=== PATIENT | male | born 1975 ===

== ENCOUNTER 2020-11-11 10:08 | Outpatient (REF) | payer OTHER, SELFPAY ==
[2020-11-11 10:19] LABS: COVID-19 Test Positive (Negative)
== END 2020-11-11 10:09 | disposition home or self-care (01) ==
LOC: HO.LAB 10:08
PROVIDERS: Visit Provider Internal Medicine
DX: Z20.822 Contact with and (suspected) exposure to COVID-19 (principal)
CPT/HCPCS: 36415; 87635; C9803

== ENCOUNTER 2020-12-01 10:35 | Emergency (ER) | payer MEDICAID, SELFPAY ==
--- NOTE | ~2020-12-01 | XR_ITS ---
EXAMINATION: RIGHT HAND AND WRIST. CLINICAL INFORMATION: Status post needle 6 injury. COMPARISON: None TECHNIQUE: 3 views. FINDINGS: There is no visible acute fracture, dislocation or subluxation seen. The soft tissues are normal. XR/XR hand wrist RT IMPRESSION: Unremarkable right hand exam.
[2020-12-01 10:55] VITALS: BP 131/92; PULSE 106; RESP 18; TEMP 36.9; O2SAT 96; BMI 31.3
[2020-12-01] MEDS: Diphth,Pertus(ACell),Tet Adult 0.5 ML SYRINGE IM (11:29)
--- NOTE | 2020-12-01 11:36 | ED_ITS ---
HPI - Fall General Chief Complaint: Extremity Injury, Upper Stated Complaint: lac Time Seen by Provider: 12/01/20 11:18 Source: patient Mode of arrival: ambulatory Limitations: no limitations History of Present Illness HPI Narrative: 45-year-old male presenting to the ED with complaints of right hand pain questioning foreign body after he had a mechanical fall where he fell onto a nail. He is unsure if there was a foreign body in there. He reports he is not up-to-date on his tetanus. He denies any symptoms prior to the fall or symptoms after the fall. Denies any other symptoms complaints concerns or injuries at this time. complaint: fall Onset (ago): day(s) (2 days ago) Fall from: standing Fall witnessed: no Place fall occurred: home Loss of consciousness: none Prolonged down time: no Symptoms prior to fall: none Context: tripped/slipped Location of injury - extremities: right: hand Severity: mild Quality: aching Associated symptoms (after fall): denies Related Data Previous Rx's Medication Instructions Recorded cephalexin 500 mg PO BID 10 Days #20 cap 12/01/20 doxycycline hyclate 100 mg PO BID 10 Days #20 tab 12/01/20 naproxen 500 mg PO BID PRN #10 tab 12/01/20 Allergies Allergy/AdvReac Type Severity Reaction Status Date / Time Penicillins [PENICILLINS] Allergy Intermediate ANAPHYLAXIS Unverified 03/06/20 16:08 Review of Systems Review of Systems: Constitutional : No changes in activity, No lethargy, No recent prior head injury, No agitation, No increased fussiness ENT/Mouth : No Ear Pain, No Nasal discharge/drainage Eyes: No Eye Pain, No Swelling, No Redness, No Foreign Body, No Vision Changes Cardiovascular : No Chest Pain, No SOB Respiratory : No Cough Gastrointestinal : No Nausea, No Vomiting, No abdominal Pain Genitourinary : No Dysuria, No Urinary Frequency, No Urinary Incontinence, No Urgency, No Flank Pain Musculoskeletal : + joint pain, No neck stiffness, No back pain/injury Skin : No lacerations Neuro : No unsteady gait, No Paresthesias, No Loss of Consciousness, No altered mental status, No Headache Yes all other systems are reviewed and are negative [facility] Past Medical History Attestation statement: The following information was validated with the patient. Surgical History Hx of elbow surgery Social History Social History Advance Directives: No Advance Directives Information Provided: No Physical Exam Vital Signs: Vital Signs: Last Vital Signs Temp 98.4 F 12/01/20 10:55 Pulse 106 H 12/01/20 10:55 Resp 18 12/01/20 10:55 BP 131/92 H 12/01/20 10:55 Pulse Ox 96 12/01/20 10:55 Body Mass Index 31.3 vital signs have been reviewed as normal and appeared to be correct. Blood pressure normal. Heart rate normal. Respiration rate normal. Temperature normal. Oxygen saturation normal. Appearance: Alert. Oriented X3. No acute distress. Head: Normal external exam. Normocephalic. Atraumatic. No Vital signs noted. No raccoon eyes noted Eyes: PERRLA. EOMI. Conjunctiva and sclera normal. Eyelids normal. ENT: Pharynx normal. Uvula midline. Moist mucous membranes. Neck: Normal inspection. Neck supple. FROM. No adenopathy. No meningeal signs. CVS: Normal heart rate and rhythm. Heart sound normal. Pulses normal throughout. No murmurs/rales/gallops. Respiratory: No respiratory distress. Painless inspiration. Breath sounds normal. No wheezes/rales/rhonchi noted. Chest nontender. No accessory muscle usage noted or decreased air movement noted. Back: Full range of motion noted. No rashes/lesion/induration/fluctuance or signs of infection noted. Skin: Skin warm and dry. Normal skin color. Normal skin turgor. No rashes/lesions/lacerations noted. Extremities: Patient with a puncture wound to palmar aspect of right hand with scab in place with mild surrounding erythema. No streaking/induration/fluctuance or foreign bodies noted at this time. Patient has full range of motion of all fingers/wrist joint. No laxity. No obvious deformities. Otherwise all other Extremities exhibit normal range of motion and nontender. Neuro: Oriented X 3. No motor deficit. No sensory deficit. Reflexes normal. Normal steady gait. No focal neuro deficits noted. Vascular: + radial pulses. Normal cap refill. No cyanosis noted to upper extremity nails. Course Course Course Narrative: 45-year-old male with a mechanical fall onto all nail to his right hand palmar aspect. On exam patient has mild soft tissue swelling and erythema consistent with cellulitic infection. X-ray of right hand negative for any foreign bodies. Patient also unsure of up-to-date on tetanus. Therefore will DC home with antibiotics and tetanus was updated at this time and instructions return if any new or worsening symptoms to follow up with primary care provider. Patient understands agrees with this plan. MDM - Fall Medical Records Attestation: I reviewed the patient's medical records. Imaging Data Right hand x-ray: Attestation: I personally reviewed and interpreted this imaging study as follows: Radiologist's impression: FINDINGS: There is no visible acute fracture, dislocation or subluxation seen. The soft tissues are normal. XR/XR hand wrist RT IMPRESSION: Unremarkable right hand exam. Discharge Plan Discharge Clinical Impression: Fall, Puncture wound of hand, Cellulitis Patient Disposition: Home, Self-Care Instructions: Puncture Wound (ED), Cellulitis (ED) Prescriptions: New doxycycline hyclate 100 mg tablet 100 mg PO BID 10 Days Qty: 20 RF: 0 cephalexin 500 mg capsule 500 mg PO BID 10 Days Qty: 20 RF: 0 naproxen 500 mg tablet 500 mg PO BID PRN (Reason: pain) Qty: 10 RF: 0 Referrals: [facility] [Primary Care Provider] - 2 days Print Language: [place]
== END 2020-12-01 11:54 | disposition home or self-care (01) ==
PROVIDERS: Emergency Provider Emergency Medicine Emergency Medical Services
DX: S61.431A Puncture wound without foreign body of right hand, initial encounter (principal); L03.113 Cellulitis of right upper limb; W45.0XXA Nail entering through skin, initial encounter; Y93.9 Activity, unspecified; Y92.009 Unspecified place in unspecified non-institutional (private) residence as the place of occurrence of the external cause; Y99.9 Unspecified external cause status
CPT/HCPCS: 73110; 73130; 90471; 90715; 99283; 99284

== ENCOUNTER 2022-01-12 12:56 | Emergency (ER) | payer OTHER, SELFPAY ==
[2022-01-12 14:02] VITALS: BP 123/86; PULSE 90; RESP 18; TEMP 36.4; O2SAT 99; BMI 29.0
--- NOTE | 2022-01-12 15:25 | ED_ITS ---
HPI - Extremity Problem General Chief complaint: Extremity Problem Stated complaint: Infected finger Time Seen by Provider: 01/12/22 14:56 Source: patient Mode of arrival: ambulatory Limitations: no limitations History of Present Illness HPI Narrative: Patient comes to the emergency room complaining a wood splinter that got infected on his left index finger days ago. Patient states that he believes he saw, patient states that it is tender to touch. Patient denies here chills. Patient states that he got the whole splinter out. Related Data Previous Rx's Medication Instructions Recorded cephalexin 500 mg capsule 500 mg PO BID Cellulitis 10 days 12/01/20 #20 caps doxycycline hyclate 100 mg tablet 100 mg PO BID 10 days #20 tabs 12/01/20 naproxen 500 mg tablet 500 mg PO BID PRN pain #10 tabs 12/01/20 sulfamethoxazole 800 1 tab PO BID #14 tabs 01/12/22 mg-trimethoprim 160 mg tablet (Bactrim DS) Allergies Allergy/AdvReac Type Severity Reaction Status Date / Time Penicillins [PENICILLINS] Allergy Intermediate ANAPHYLAXIS Unverified 01/12/22 14:02 Review of Systems Review of Systems: Constitutional : No Weight loss, No Fever, No Chills, No Night Sweats, No Fatigue, No Malaise ENT/Mouth : No Hearing loss, No Ear Pain, No Nasal Congestion, No Sinus Pain, No Hoarseness, No sore throat, No Rhinorrhea, No Swallowing Difficulty Eyes: No Eye Pain, No Swelling, No Redness, No Foreign Body, No Discharge, No Vision Changes Cardiovascular : No Chest Pain, No SOB, No Dyspnea on Exertion, No Orthopnea, No Edema, No Palpitations Respiratory : No Cough, No Sputum, No Wheezing, No Smoke Exposure, No Dyspnea Gastrointestinal : No Nausea, No Vomiting, No Diarrhea, No Constipation, No abdominal Pain, No Hematochezia, No Melena Genitourinary : no irregular bleeding, No Dysuria, No Urinary Frequency, No Hematuria, No Urinary Incontinence, No Urgency, No Flank Pain, No Urinary Flow Changes, No Hesitancy Musculoskeletal : No joint pain, No Myalgias, No Joint Swelling Skin : Pain and swelling on the palmar aspect of the left index finger, possible pus Neuro : No Weakness, No Numbness, No Paresthesias, No Loss of Consciousness, No Dizziness, No Headache Psych : No Anxiety/Panic, No Depression, No SI/HI/AH/VH, No Social Issues, Heme/Lymph: No Bruising, No Bleeding,No Lymphadenopathy Endocrine : No Polyuria, No Polydipsia, No Temperature Intolerance [facility] Past Medical History Surgical History Hx of elbow surgery Social History Social History (System 01/12/22 @ 13:17 by Elaine Lagos) Advance Directives: No Advance Directives Information Provided: No Physical Exam Vital Signs: Vital Signs: Last Vital Signs Temp 97.6 F 01/12/22 14:02 Pulse 90 01/12/22 14:02 Resp 18 01/12/22 14:02 BP 123/86 01/12/22 14:02 Pulse Ox 99 01/12/22 14:02 O2 Del Method 01/12/22 14:02 BMI result Body Mass Index 29.0 Const: Other: Appearance: Alert. Oriented X3. No acute distress. Eyes: Pupils equal, round and reactive to light. ENT: Pharynx normal. Neck: Normal inspection. Neck supple. No lymph nodes noted. No crepitus CVS: Normal heart rate and rhythm. Pulses normal. Normal S1 and S2 Respiratory: No respiratory distress. Breath sounds normal. No Wheezing. No rales Abdomen: Soft and nontender. No rigidity. No distention. Skin: Skin warm and dry. Normal skin color. Normal skin turgor. Extremities: No lower extremity edema. There is mild swelling and erythema on the palmar aspect of the left index finger, no pus was expressed. Neuro: Oriented X 3. No motor deficit. No sensory deficit. Moving all extremities. No slurred speech. CN 2 through 12 grossly intact Psych: calm, cooperative, normal affect Course Course Course Narrative: Patient likely developing cellulitis. At this time it is mild. Discharge Plan Discharge Clinical Impression: Cellulitis Patient Disposition: Home, Self-Care Instructions: Cellulitis (ED) Additional Instructions: Please follow-up with your primary care physician tomorrow. If you have any worsening or new symptoms, please return to the emergency room or call 911 Prescriptions: New sulfamethoxazole-trimethoprim [Bactrim DS] 800-160 mg tablet 1 tab PO BID Qty: 14 0RF No Action doxycycline hyclate 100 mg tablet 100 mg PO BID 10 Days Qty: 20 0RF cephalexin 500 mg capsule 500 mg PO BID 10 Days Qty: 20 0RF naproxen 500 mg tablet 500 mg PO BID PRN (Reason: pain) Qty: 10 0RF
== END 2022-01-12 15:52 | disposition home or self-care (01) ==
PROVIDERS: Emergency Provider Emergency Medicine
DX: L03.012 Cellulitis of left finger (principal)
CPT/HCPCS: 99282; 99283

== ENCOUNTER 2022-04-08 19:32 | Emergency (ER) | payer MEDICAID, SELFPAY | END 2022-04-08 20:31 | disposition left against medical advice (07) | PROVIDERS: Emergency Provider Emergency Medicine | DX: M79.646 Pain in unspecified finger(s) (principal) ==

== ENCOUNTER 2022-11-15 19:12 | Emergency (ER) | payer MEDICAID, SELFPAY ==
--- NOTE | ~2022-11-15 | US_ITS ---
EXAMINATION: US SCROTUM CLINICAL INFORMATION: Left testicular discomfort x5. COMPARISON: None available. TECHNIQUE: A sonogram of the scrotum was performed assessing jennings-scale appearance and color Doppler flow. Spectral Doppler analysis of the arterial and venous flow were performed in the testes bilaterally. FINDINGS: RIGHT: Right testicle measures 5.0 x 2.3 x 3.1 cm, volume 18.4 mL. No focal testicular parenchymal lesions are visualized. Spectral Doppler analysis of the arterial and venous flow is normal in the right testis, symmetric with the left. Right epididymal head is normal in size. No right hydrocele or varicocele is seen. Right epididymal Doppler flow is normal. LEFT: Left testicle measures 5.0 x 2.2 x 3.0 cm, volume 17.1 mL. No focal testicular parenchymal lesions are visualized. Spectral Doppler analysis of the arterial and venous flow is normal in the left testis, symmetric with the right. Left epididymal head is normal in size. There is a 4 mm cyst in the head of the epididymis. No left varicocele. There is a small left hydrocele. Left epididymal Doppler flow is normal. US/US scrotum IMPRESSION: Essentially negative exam. A small cyst is present in the head of the left epididymis. Small left hydrocele is present.
--- NOTE | ~2022-11-15 | CT_ITS ---
EXAMINATION: CT ABDOMEN AND PELVIS WITHOUT CONTRAST CLINICAL INFORMATION: Left groin pain. Kidney stones versus hernia. COMPARISON: 03/12/2020 TECHNIQUE: Multidetector volumetric imaging was performed from the superior aspect of the liver through the pubic symphysis. Sagittal and coronal reformatted images were obtained on the technologist's workstation. This CT examination was performed using dose optimization techniques as appropriate, variously including the following: *Automated exposure control *Adjustment of mA and/or kV according to patient size (this includes techniques or standardized protocols for targeted exams where dose is matched to indication/reason for exam; i.e. extremities or head) *Use of iterative reconstruction technique DLP: 585 mGy-cm FINDINGS: LUNG BASES: The visualized lung bases are unremarkable. LIVER, GALLBLADDER, AND BILIARY TREE: The liver is normal in size, shape, and attenuation. No focal hepatic lesion or biliary ductal dilatation is present. The gallbladder is decompressed. PANCREAS: Unremarkable. SPLEEN: Unremarkable. ADRENAL GLANDS: There is a stable 2.1 cm fat attenuation nodule consistent with adenoma. KIDNEYS AND URETERS: There is a 2 mm nonobstructing calculus in the lower pole of the left kidney. There is no hydronephrosis. No right-sided renal calculi. Small cyst in the lower pole of the right kidney that does not require imaging follow-up. BLADDER: No bladder wall thickening or bladder calculi. GASTROINTESTINAL TRACT: The small and large bowel are unremarkable. The appendix is unremarkable. ABDOMINAL WALL: No significant hernia is appreciated. LYMPH NODES: No abdominal or pelvic lymphadenopathy. VASCULAR: Unremarkable. PELVIC VISCERA: The prostate and seminal vesicles are unremarkable. OSSEOUS STRUCTURES: Grade 1 retrolisthesis of L5 on S1. Bilateral L4 and L5 pars defects. CT/CT abdomen pelvis wo IV con IMPRESSION: 1. 2 mm nonobstructing calculus in the lower pole of the left kidney. No hydronephrosis. 2. 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 Fleischner guidelines were followed.
--- NOTE | ~2022-11-15 | US_ITS ---
EXAMINATION: US SCROTUM CLINICAL INFORMATION: Left testicular discomfort x5. COMPARISON: None available. TECHNIQUE: A sonogram of the scrotum was performed assessing jennings-scale appearance and color Doppler flow. Spectral Doppler analysis of the arterial and venous flow were performed in the testes bilaterally. FINDINGS: RIGHT: Right testicle measures 5.0 x 2.3 x 3.1 cm, volume 18.4 mL. No focal testicular parenchymal lesions are visualized. Spectral Doppler analysis of the arterial and venous flow is normal in the right testis, symmetric with the left. Right epididymal head is normal in size. No right hydrocele or varicocele is seen. Right epididymal Doppler flow is normal. LEFT: Left testicle measures 5.0 x 2.2 x 3.0 cm, volume 17.1 mL. No focal testicular parenchymal lesions are visualized. Spectral Doppler analysis of the arterial and venous flow is normal in the left testis, symmetric with the right. Left epididymal head is normal in size. There is a 4 mm cyst in the head of the epididymis. No left varicocele. There is a small left hydrocele. Left epididymal Doppler flow is normal. US/US scrotum doppler IMPRESSION: Essentially negative exam. A small cyst is present in the head of the left epididymis. Small left hydrocele is present.
[2022-11-15 19:21] VITALS: BP 136/89; PULSE 112; RESP 18; TEMP 36.8; O2SAT 96; BMI 29.0
--- NOTE | 2022-11-15 19:28 | ED_ITS ---
HPI - General Adult General Chief complaint: General Medical Stated complaint: left lower quadrant pain Time Seen by Provider: 11/15/22 19:47 Source: patient Mode of arrival: ambulatory Limitations: no limitations History of Present Illness HPI narrative: Patient is a 47-year-old male with history of kidney stones presenting with left lower back and left testicular pain for 5 days. He reports the pain is current ly a 4/10 and has been the same level since onset and feels similar to prior episodes of kidney stones. He denies any nausea or vomiting. Denies any diarrhea or constipation. Denies any fevers. He denies any concern for STIs. He denies any testicular swelling, rashes, penile discharge. He denies any difficulty urinating, dysuria, or hematuria. He states that he has seen a urologist in the past and has made dietary adjustments based on their recommendations. complaint: left testicular pain Onset (ago): day(s) Location: back and genitals Radiation: back Severity scale (1-10): 4 Quality: dull Pain Consistency: constant Relieving factors: rest Exacerbating factors: movement Associated symptoms: denies other symptoms Treatments prior to arrival: none Related Data Previous Rx's Medication Instructions Recorded cephalexin 500 mg capsule 500 mg PO BID Cellulitis 10 days 12/01/20 #20 caps doxycycline hyclate 100 mg tablet 100 mg PO BID 10 days #20 tabs 12/01/20 naproxen 500 mg tablet 500 mg PO BID PRN pain #10 tabs 12/01/20 sulfamethoxazole 800 1 tab PO BID #14 tabs 01/12/22 mg-trimethoprim 160 mg tablet (Bactrim DS) Allergies Allergy/AdvReac Type Severity Reaction Status Date / Time Penicillins [PENICILLINS] Allergy Intermediate ANAPHYLAXIS Unverified 01/12/22 14:02 Review of Systems Review of Systems: As per HPI. Yes all other systems are reviewed and are negative PMFSH Past Medical History Surgical History Hx of elbow surgery Social History Social History (System 01/12/22 @ 13:17 by Elaine Lagos) Advance Directives: No Advance Directives Information Provided: Yes Physical Exam ED Vital Signs: Vital Signs - 24 hr 11/15/22 19:21 11/15/22 19:53 Temperature 98.3 F 98.2 F Pulse Rate 112 H 99 Respiratory Rate 18 18 Blood Pressure 136/89 131/87 Pulse Oximetry 96 95 Oxygen Delivery Method Room Air Room Air BMI result Body Mass Index 29.0 VS have been reviewed and appear to be correct. Blood pressure normal. Heart rate normal. Respiratory rate normal. Temperature normal. Oxygen saturation normal. Vital signs have been reviewed and appear to be correct. Blood pressure normal. Heart rate normal. Respiratory rate normal. Temperature normal. Oxygen saturation normal. Const General: no acute distress, alert and awake Orientation/consciousness: patient oriented x3 HENMT Head: Yes normocephalic and Yes atraumatic Mouth: oropharynx normal and moist mucous membranes Throat: Yes uvula midline Eyes Pupils: Equal, round and reactive pupils present EOM: EOMs intact bilaterally Neck Neck: Yes normal visual inspection, Yes full ROM, Yes no lymphadenopathy, Yes no meningeal signs and Yes supple Resp Effort & Inspection: normal respiratory effort Auscultation: clear to auscultation bilaterally Cardio Rate: regular rate Rhythm: regular rhythm Heart sounds: S1 normal heart sound present and S2 normal heart sound present Peripheral pulses: Peripheral pulses 2+ throughout GI Inspection: Yes normal to inspection and No distended Palpation (GI): Soft to palpation, nontender, no guarding and No Rebound tenderness present Auscultation: normoactive bowel sounds Other: Chaperoned by: IRINA Dewitt tech General: Yes no CVA tenderness Male General Exam: Yes normal external exam, No edema, No erythema, No hernia, No inguinal lymphadenopathy, No Genital lesions present and No tenderness Penis: No Genital lesions present Scrotum: scrotum normal, not edematous, not erythematous, testes descended bilaterally and no inguinal hernias Testes: Testes normal, no testicular mass, no testicular swelling and no testicular tenderness Back/Spine/Pelvis Back: no CVA tenderness Skin General skin exam: elasticity normal and turgor normal Rashes: no rashes Neuro General: patient oriented x3, gait normal and no meningeal signs Cranial nerves: Yes Equal, round and reactive pupils present Motor exam (neuro): 5/5 motor strength present throughout and Normal motor muscle tone present throughout Sensory Exam: Normal double simultaneous stimulation for sensation Course Course Course Narrative: RME: 47 yold male presents to the ED for left groin pain radiating from back radiating to testicle for one week. no dysuria or hematuria. 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 U/S: 4mm cyst present at the head of the left epididymis with small left hydrocele. Labs and UA unremarkable. All results discussed with patient and all questions answered. Feel patient is stable for discharge home with urology follow up. Return precautions discussed at bedside. Time: 21:02 Medications Administered Discontinued Medications Generic Name Dose Route Start Last Admin Trade Name Freq PRN Reason Stop Dose Admin Ketorolac Tromethamine 30 mg 11/15/22 20:20 11/15/22 20:44 Ketorolac Tromethamine 30 Mg/Ml Vial IM 11/15/22 20:21 30 mg ONCE ONE Administration Medical Decision Making Medical Decision Making [facility] Narrative: Patient is a 47-year-old male with history of kidney stones presenting with left lower back and left testicular pain for 5 days. On exam patient is awake, A+Ox3, in no acute distress, VS WNL, abdomen is soft and nontender, no CVA tenderness, unremarkable external exam. Concern for nephrolithiasis, UTI/p yelonephritis, STI. Less likely epididymitis/orchitis, hernia. Unlikely testicular torsion. Plan: labs, UA, CT NG, ultrasound, CT Please refer to course for remaining clinical decision making. Differential Diagnosis Differential Diagnoses: The differential diagnosis associated with the presentation includes As above. Admission/Observation Consideration of admission/observation: Escalation of care including admission/observation considered Lab Data [facility] Lab Attestation statement: I reviewed the patient's lab results. 11/15/22 19:34 11/15/22 19:34 Labs: Lab Results 11/15/22 11/15/22 Range/Units 19:34 19:34 WBC 10.2 (4.8-10.8) X10*3/uL RBC 5.02 (4.60-5.80) X10*6/uL Hgb 15.4 (14.0-18.0) g/dl Hct 45.4 (42.0-52.0) % MCV 90.4 (80.0-98.0) fL MCH 30.7 (27.0-33.0) pg MCHC 33.9 (31.0-36.0) g/dl RDW 13.3 (11.0-16.0) % Plt Count 256 (160-400) X10*3/uL MPV 9.0 L (9.4-12.4) fL Immature Gran % (Auto) 0.4 (0.0-0.4) % Neut % (Auto) 67.0 (45-73) % Lymph % (Auto) 22.0 (20-40) % Dale % (Auto) 8.0 (2-11) % Eos % (Auto) 2.0 (0-4) % Baso % (Auto) 0.6 (0-2) % Lymph # (Auto) 2.2 (1.2-4.9) X10*3/uL Dale # (Auto) 0.8 (0.1-1.2) X10*3/uL Eos # (Auto) 0.2 (0.0-0.4) X10*3/uL Baso # (Auto) 0.1 (0.0-0.2) X10*3/uL Abs Immat Gran (auto) 0.04 H (0.00-0.03) X10*3/uL Absolute Neuts (auto) 6.8 (2.0-8.3) x10*3/uL Absolute Nucleated RBC 0.000 (0.0-0.012) X10*3/uL Nucleated RBC % (auto) 0.0 (0.0-0.2) /100WBC Sodium 143 (135-145) mmol/L Potassium 4.1 (3.3-5.1) mmol/L Chloride 109 H (96-108) mmol/L Carbon Dioxide 24 (22-29) mmol/L Anion Gap 14 (12-20) BUN 12 (9-16) mg/dL Creatinine 1.00 (0.5-1.4) mg/dL Estim Creat Clear Calc 93.5 Estimated GFR > 60 Random Glucose 133 H (60-115) mg/dL Calcium 9.7 (8.4-10.2) mg/dL Total Bilirubin 0.4 (0.0-1.0) mg/dL AST 22 (5-37) U/L ALT 26 (0-40) U/L Alkaline Phosphatase 79 (39-117) U/L Total Protein 6.9 (6.5-8.0) g/dL Albumin 4.1 (3.5-5.0) g/dL Independent Interpretation I performed an independent interpretation of an: Ultrasound and CT Scan Interpretation: I independently reviewed the ultrasound and CT and agree with the radiologist's interpretation. Radiology Impression Discussion of test interpretation with radiology: I have reviewed the radiologist's reading. Radiologist Impression: FINDINGS: LUNG BASES: The visualized lung bases are unremarkable.? LIVER, GALLBLADDER, AND BILIARY TREE: The liver is normal in size, shape, and attenuation. No focal hepatic lesion or biliary ductal dilatation is present. The gallbladder is decompressed.? PANCREAS: Unremarkable.? SPLEEN: Unremarkable.? ADRENAL GLANDS: There is a stable 2.1 cm fat attenuation nodule consistent with adenoma.? KIDNEYS AND URETERS: There is a 2 mm nonobstructing calculus in the lower pole of the left kidney. There is no hydronephrosis. No right-sided renal calculi. Small cyst in the lower pole of the right kidney that does not require imaging follow-up.? BLADDER: No bladder wall thickening or bladder calculi.? GASTROINTESTINAL TRACT: The small and large bowel are unremarkable. The appendix is unremarkable.? ABDOMINAL WALL: No significant hernia is appreciated.? LYMPH NODES: No abdominal or pelvic lymphadenopathy. VASCULAR: Unremarkable. PELVIC VISCERA: The prostate and seminal vesicles are unremarkable.? OSSEOUS STRUCTURES: Grade 1 retrolisthesis of L5 on S1. Bilateral L4 and L5 pars defects.? CT/CT abdomen pelvis wo IV con IMPRESSION: 1.? 2 mm nonobstructing calculus in the lower pole of the left kidney. No hydronephrosis. 2.? 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 ? Fleischner guidelines were followed. FINDINGS: RIGHT: Right testicle measures 5.0 x 2.3 x 3.1 cm, volume 18.4 mL. No focal testicular parenchymal lesions are visualized. Spectral Doppler analysis of the arterial and venous flow is normal in the right testis, symmetric with the left. Right epididymal head is normal in size. No right hydrocele or varicocele is seen. Right epididymal Doppler flow is normal. LEFT: Left testicle measures 5.0 x 2.2 x 3.0 cm, volume 17.1 mL. No focal testicular parenchymal lesions are visualized. Spectral Doppler analysis of the arterial and venous flow is normal in the left testis, symmetric with the right. Left epididymal head is normal in size. There is a 4 mm cyst in the head of the epididymis. No left varicocele. There is a small left hydrocele. Left epididymal Doppler flow is normal. US/US scrotum IMPRESSION: Essentially negative exam. A small cyst is present in the head of the left epididymis. Small left hydrocele is present. External Record Review External record reviewed: Inpatient record, Office record and Outpatient record Prescription Management I considered prescription management with: Pain Medication Discharge Plan Discharge Clinical Impression: Cyst of epididymis determined by ultrasound, Hydrocele, left Patient Disposition: Home, Self-Care Instructions: Hydrocele (ED), Testicle Pain (ED), Scrotal Pain (ED) Additional Instructions: You were evaluated in the emergency department today for left testicular pain. Your ultrasound showed a small cyst as well as a small hydrocele which is a collection of fluid in your testicle. You are being referred to a urologist, please contact them to schedule an appointment for further evaluation. Return to the emergency department if you develop fevers 100.4F or greater, worsening pain, difficulty urinating, vomiting, flank pain, or other concerning symptoms. Prescriptions: No Action doxycycline hyclate 100 mg tablet 100 mg PO BID 10 Days Qty: 20 0RF cephalexin 500 mg capsule 500 mg PO BID 10 Days Qty: 20 0RF naproxen 500 mg tablet 500 mg PO BID PRN (Reason: pain) Qty: 10 0RF sulfamethoxazole-trimethoprim [Bactrim DS] 800-160 mg tablet 1 tab PO BID Qty: 14 0RF Referrals: [facility] [place] [facility] Urology Services [Provider Group] Interventions: ED Discharge Assessment Last Done: 11/15/22 21:22 Discharge Date/Time: 11/15/22 21:24
[2022-11-15 19:38] LABS: MANUAL DIFF FLAG NO
[2022-11-15 19:42] LABS: Basophils Absolute Auto 0.1 X10*3/uL (0.0-0.2); Basophils Percent Auto 0.6 % (0-2); Eosinophils Absolute Auto 0.2 X10*3/uL (0.0-0.4); Hematocrit 45.4 % (42.0-52.0); Hemoglobin 15.4 g/dl (14.0-18.0); Imm Gran Abs Auto 0.04 X10*3/uL (0.00-0.03); Imm Gran Pct Auto 0.4 % (0.0-0.4); Lymphocytes Absolute Auto 2.2 X10*3/uL (1.2-4.9); Mean Corpuscular HGB Conc 33.9 g/dl (31.0-36.0); Mean Corpuscular Hemoglobin 30.7 pg (27.0-33.0); Mean Corpuscular Volume 90.4 fL (80.0-98.0); Monocytes Absolute Auto 0.8 X10*3/uL (0.1-1.2); Neutrophils Absolute Auto 6.8 x10*3/uL (2.0-8.3); Platelet Count 256 X10*3/uL (160-400); Red Blood Count 5.02 X10*6/uL (4.60-5.80); Red Cell Distribution Width 13.3 % (11.0-16.0); White Blood Count 10.2 X10*3/uL (4.8-10.8)
[2022-11-15 19:53] VITALS: BP 131/87; PULSE 99; RESP 18; TEMP 36.8; O2SAT 95
[2022-11-15 19:58] LABS: Alanine Aminotransferase 26 U/L (0-40); Albumin Level 4.1 g/dL (3.5-5.0); Alkaline Phosphatase 79 U/L (39-117); Anion Gap 14 (12-20); Aspartate Amino Transferase 22 U/L (5-37); Bilirubin Total 0.4 mg/dL (0.0-1.0); Blood Urea Nitrogen 12 mg/dL (9-16); Calcium 9.7 mg/dL (8.4-10.2); Carbon Dioxide 24 mmol/L (22-29); Chloride 109 mmol/L (96-108); Creatinine Clr Calc Pharmacy 93.5; Estimated Glomerular Filt Rate > 60; Glucose Random 133 mg/dL (60-115); Potassium 4.1 mmol/L (3.3-5.1); Sodium 143 mmol/L (135-145); Total Protein 6.9 g/dL (6.5-8.0)
--- NOTE | 2022-11-15 20:08 | PC.NURSE ---
pt brought back from waiting room, resting on stretcher at this time, endorses pain under testicles. Pt aware that a urine is still needed
[2022-11-15] MEDS: Ketorolac Tromethamine 30 MG/ML VIAL IM (20:44)
--- NOTE | 2022-11-15 20:50 | PC.NURSE ---
awaiting callback for report
== END 2022-11-15 21:24 | disposition home or self-care (01) ==
PROVIDERS: Physician Assistant; Emergency Provider Emergency Medicine
DX: N45.1 Epididymitis (principal); R10.32 Left lower quadrant pain; N43.3 Hydrocele, unspecified; M54.50 Low back pain, unspecified; Z79.899 Other long term (current) drug therapy
CPT/HCPCS: 36415; 74176; 76870; 80053; 85025; 93975; 96372; 99283; 99284; J1885

== ENCOUNTER 2023-01-09 08:15 | Emergency (ER) | payer MEDICAID, SELFPAY ==
[2023-01-09 08:32] VITALS: BP 146/98; PULSE 94; RESP 18; TEMP 36.3; O2SAT 97; BMI 27.4
[2023-01-09] MEDS: Fluorescein Sodium STRIP 1 STRIP EYE-BOTH (09:47)
[2023-01-09] MEDS: Tetracaine HCl/PF 0.5% Oph Sol 4 ML DROPS 3 DROP EYE-BOTH (09:48)
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
[2023-01-09 10:40] VITALS: BP 152/98; PULSE 78; RESP 18; O2SAT 100
== END 2023-01-09 10:42 | disposition home or self-care (01) ==
PROVIDERS: Emergency Provider Emergency Medicine Emergency Medical Services
DX: H57.13 Ocular pain, bilateral (principal)
CPT/HCPCS: 99283; 99284

== ENCOUNTER 2023-01-16 01:57 | Emergency (ER) | payer MEDICAID, SELFPAY ==
[2023-01-16 02:11] VITALS: BP 135/96; PULSE 94; RESP 22; TEMP 36.9; O2SAT 6; BMI 31.0
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
[2023-01-16] MEDS: Ibuprofen 800 MG TABLET PO (03:03)
[2023-01-16] MEDS: Fluorescein Sodium STRIP 1 STRIP EYE-BOTH (03:03)
== END 2023-01-16 03:07 | disposition home or self-care (01) ==
PROVIDERS: Emergency Provider Emergency Medicine
DX: H57.13 Ocular pain, bilateral (principal); H53.143 Visual discomfort, bilateral
CPT/HCPCS: 99283; 99284

== ENCOUNTER 2023-06-08 08:18 | Outpatient (REF) | payer MEDICAID, SELFPAY ==
[2023-06-08 11:44] LABS: Hematocrit 50.9 % (42.0-52.0); Hemoglobin 16.9 g/dl (14.0-18.0); Mean Corpuscular HGB Conc 33.2 g/dl (31.0-36.0); Mean Corpuscular Hemoglobin 30.8 pg (27.0-33.0); Mean Corpuscular Volume 92.7 fL (80.0-98.0); Mean Platelet Volume 9.8 fL (9.4-12.4); Platelet Count 230 X10*3/uL (160-400); Red Blood Count 5.49 X10*6/uL (4.60-5.80); Red Cell Distribution Width 13.6 % (11.0-16.0); White Blood Count 8.5 X10*3/uL (4.8-10.8)
[2023-06-08 11:55] LABS: Estimated Average Glucose 111 mg/dL; Hemoglobin A1c % 5.5 % (<6.0)
[2023-06-08 12:31] LABS: HBS Num1 3.13 mIU/mL (0-7.99); HBc Num1 0.06 S/CO (0.00-0.79); HBsAGNum1 0.46 S/CO (0.00-0.99); HIV AB/AG Nonreactive (Nonreactive); HIV Num 1 0.05 S/CO (0.00-0.99); Hepatitis B Core Antibody Nonreactive (Nonreactive); Hepatitis B Surface Antigen Negative (Negative); Syphilis Screen Nonreactive (Nonreactive); ~HepC Num1 0.14 S/CO (0.00-0.79); ~Hepatitis B Surface Antibody NONREACTIVE (Nonreactive); ~Hepatitis C Antibody Nonreactive (Nonreactive)
[2023-06-08 17:46] LABS: Alanine Aminotransferase 34 U/L (0-40); Albumin Level 4.4 g/dL (3.5-5.0); Alkaline Phosphatase 94 U/L (39-117); Anion Gap 12 (12-20); Aspartate Amino Transferase 29 U/L (5-37); Bilirubin Total 0.4 mg/dL (0.0-1.0); Blood Urea Nitrogen 8 mg/dL (9-16); Calcium 9.5 mg/dL (8.4-10.2); Carbon Dioxide 29 mmol/L (22-29); Chloride 104 mmol/L (96-108); Cholesterol 205 mg/dL (<200); Estimated Glomerular Filt Rate > 60; Glucose Random 100 mg/dL (60-115); HDL Cholesterol 47 mg/dL (>40); LDL Cholesterol Calculated 112 mg/dL (<100); Sodium 141 mmol/L (135-145); Total Protein 7.6 g/dL (6.5-8.0); Triglycerides 233 mg/dL (<150)
[2023-06-08 18:00] LABS: TSH reflex Free T4 0.62 uIU/mL (0.32-4.0)
== END 2023-06-08 08:19 | disposition home or self-care (01) ==
LOC: HO.HHCL 08:18
PROVIDERS: Visit Provider Student in an Organized Health Care Education/Training Program
DX: Z00.00 Encounter for general adult medical examination without abnormal findings (principal)
CPT/HCPCS: 36415; 80053; 80061; 83036; 84443; 85027; 86704; 86706; 86780; 86803; 87340; 87389

== ENCOUNTER 2023-06-10 12:14 | Outpatient (REF) | payer MEDICAID, SELFPAY ==
[2023-06-10 14:13] LABS: Creatinine Urine 167.95 mg/dL; Microalbum/Creatinine Ratio Ur 8.3 ug/mg cr (<30)
[2023-06-10 15:08] LABS: CT PCR NOT DETECTED (Not Detect.); NG PCR NOT DETECTED (Not Detect.)
== END 2023-06-10 12:15 | disposition home or self-care (01) ==
LOC: HO.HHCL 12:14
PROVIDERS: Visit Provider Student in an Organized Health Care Education/Training Program
DX: Z00.00 Encounter for general adult medical examination without abnormal findings (principal)
CPT/HCPCS: 0353U; 82043; 82570

== ENCOUNTER 2023-10-07 09:12 | Outpatient (REF) | payer MEDICAID, SELFPAY | END 2023-10-07 09:13 | disposition home or self-care (01) | LOC: HO.HOSX 09:12 | PROVIDERS: Visit Provider Physician Assistant | DX: Z13.89 Encounter for screening for other disorder (principal) ==

== ENCOUNTER 2023-11-30 17:37 | Emergency (ER) | payer MEDICAID, SELFPAY | END 2023-11-30 19:59 | disposition left against medical advice (07) | PROVIDERS: Emergency Provider Emergency Medicine | DX: Z53.21 Procedure and treatment not carried out due to patient leaving prior to being seen by health care provider (principal) ==

== ENCOUNTER 2023-12-01 09:33 | Emergency (ER) | payer MEDICAID, SELFPAY ==
--- NOTE | ~2023-12-01 | US_ITS ---
EXAMINATION: US VENOUS ULTRASOUND WITH DOPPLER LOWER EXTREMITY, LEFT CLINICAL INFORMATION: pain, swelling to calf COMPARISON: None available. TECHNIQUE: Ultrasound of the deep veins is performed from the hip to the calf with compression sonography and color and pulse Doppler assessment. Spectral analysis with color-flow imaging is performed. FINDINGS: There is normal venous compression and respiratory variation and augmented flow. The visualized common femoral vein, superficial femoral vein, profunda femoral vein, popliteal vein, and the trifurcation region shows no evidence of deep venous thrombosis. There is no significant popliteal fossa cyst. There is a complex fluid collection along the mid calf which measures 1.8 cm in maximum thickness. If the patient's symptoms persist, followup ultrasound in 5 days 7 days might be of value to exclude proximal propagation from a non-visualized calf vein. US/US venous duplex LE LT IMPRESSION: 1. No evidence for deep venous thrombosis in the visualized veins of the left lower extremity. 2. Complex fluid collection along the mid calf measuring 1.8 cm in maximum thickness, favored to represent a hematoma in the setting of trauma. If these findings persist or enlarge, short-term repeat targeted soft tissue ultrasound can be performed as clinically indicated to assess for change.
--- NOTE | ~2023-12-01 | XR_ITS ---
EXAMINATION: XR TIBIA AND FIBULA, LEFT CLINICAL INFORMATION: Question foreign body calf COMPARISON: None available. TECHNIQUE: AP and lateral views of the left tibia and fibula were obtained. FINDINGS: No acute visible fracture or dislocation. Well-corticated ossific focus inferior to the medial malleolus potentially representing sequela of remote trauma. Joint space alignment are otherwise maintained. Soft tissues are unremarkable without radiopaque foreign body identified. XR/XR tibia fibula LT 2V IMPRESSION: 1. No acute visible fracture or dislocation. 2. Well-corticated ossific focus inferior to the medial malleolus potentially representing sequela of remote trauma. 3. Soft tissues are unremarkable without radiopaque foreign body identified.
[2023-12-01 09:43] VITALS: BP 129/84; PULSE 94; RESP 16; TEMP 36.6; O2SAT 96; BMI 31.5
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
[2023-12-01 12:00] VITALS: BP 119/89; PULSE 71; TEMP 36.6; O2SAT 94
[2023-12-01 13:45] VITALS: BP 119/89; PULSE 71; RESP 16; TEMP 36.6; O2SAT 94
== END 2023-12-01 13:53 | disposition home or self-care (01) ==
PROVIDERS: Emergency Provider Emergency Medicine
DX: S80.12XA Contusion of left lower leg, initial encounter (principal); W20.8XXA Other cause of strike by thrown, projected or falling object, initial encounter; Y93.H2 Activity, gardening and landscaping; Y92.9 Unspecified place or not applicable; Y99.9 Unspecified external cause status
CPT/HCPCS: 73590; 93971; 99283; 99284

== ENCOUNTER 2024-01-23 13:59 | Outpatient (REF) | payer MEDICAID, SELFPAY ==
[2024-01-23 16:23] LABS: Alanine Aminotransferase 26 U/L (0-40); Albumin Level 4.4 g/dL (3.5-5.0); Alkaline Phosphatase 88 U/L (39-117); Anion Gap 13 (12-20); Aspartate Amino Transferase 24 U/L (5-37); Bilirubin Total 0.5 mg/dL (0.0-1.0); Blood Urea Nitrogen 10 mg/dL (9-16); Calcium 9.5 mg/dL (8.4-10.2); Carbon Dioxide 22 mmol/L (22-29); Chloride 107 mmol/L (96-108); Estimated Glomerular Filt Rate > 60; Glucose Random 120 mg/dL (60-115); Potassium 3.9 mmol/L (3.3-5.1); Sodium 138 mmol/L (135-145); Total Protein 7.3 g/dL (6.5-8.0)
== END 2024-01-23 14:00 | disposition home or self-care (01) ==
LOC: HO.HHCL 13:59
PROVIDERS: Visit Provider Student in an Organized Health Care Education/Training Program
DX: I10 Essential (primary) hypertension (principal)
CPT/HCPCS: 36415; 80053

== ENCOUNTER 2024-02-24 16:18 | Emergency (ER) | payer MEDICAID, SELFPAY ==
--- NOTE | ~2024-02-24 | XR_ITS ---
EXAMINATION: XR HAND, LEFT CLINICAL INFORMATION: Trauma to second digit. COMPARISON: None available. TECHNIQUE: PA, lateral, and oblique views of the left hand. FINDINGS: There is no fracture or dislocation. There is a skin laceration at the level of the distal phalanx of the second digit. No radiopaque foreign object is identified. XR/XR hand LT min 3V IMPRESSION: No fracture or dislocation. Skin laceration. Electronically signed by: Lee Silva DO 02/24/2024 06:04 PM EDT
[2024-02-24 16:34] VITALS: BP 158/104; PULSE 92; RESP 18; TEMP 36.6; O2SAT 96; BMI 30.7
--- NOTE | 2024-02-24 16:36 | ED.GENADULT ---
HPI - General Adult General Chief complaint: Wound/Laceration Stated complaint: almost lost a finger Source: patient Mode of arrival: ambulatory Limitations: no limitations History of Present Illness ED Provider: Radhika Pearson PA-C HPI narrative: Patient is a 48 year old assigned male at with no reported medical history presenting to the emergency department today with left index finger pain. Patient states that he was using a wood splitter and because the wood was wet, it slipped, and he caught his left pointer finger with it. Patient denies any dizziness, lightheadedness, abdominal pain, nausea, vomiting, fever, chills, blurry vision, double vision, loss of vision, chest pain, difficulty breathing, shortness of breath, back pain, night sweats, pain with urination, increased urinary frequency, increased urinary urgency, blood in his urine or stool, syncope or a near syncopal episode, bowel incontinence, bladder incontinence, or any other complaints at this time. Relieving factors: none Exacerbating factors: none Associated symptoms: denies other symptoms Treatments prior to arrival: none Related Data Previous Rx's ?Medication ?Instructions ?Recorded cephalexin 500 mg capsule 500 mg PO BID Cellulitis 10 days 12/01/20 #20 caps doxycycline hyclate 100 mg tablet 100 mg PO BID 10 days #20 tabs 12/01/20 naproxen 500 mg tablet 500 mg PO BID PRN pain #10 tabs 12/01/20 sulfamethoxazole 800 1 tab PO BID #14 tabs 01/12/22 mg-trimethoprim 160 mg tablet (Bactrim DS) erythromycin 5 mg/gram (0.5 %) eye 0.5 inch ophthalmic (eye) TID 7 01/16/23 ointment days #3.5 grams Allergies Allergy/AdvReac Type Severity Reaction Status Date / Time Penicillins [PENICILLINS] Allergy Intermediate ANAPHYLAXIS Verified 02/25/24 07:17 Review of Systems Constitutional: Constitutional: Reports no additional constitutional complaints, Denies chills, Denies fever(s) and Denies night sweats Eyes: Eyes: Reports no additional eye complaints, Denies blurry vision, Denies change in vision, Denies diplopia, Denies eye discharge, Denies loss of vision and Denies eye pain ENT: Denies dizziness Cardiovascular: Cardiovascular: Reports no additional cardiovascular complaints, Denies chest pain, Denies lightheadedness, Denies Loss of Consciousness and Denies dyspnea Respiratory: Respiratory: Reports no additional respiratory complaints and Denies dyspnea Gastrointestinal: Gastrointestinal: Reports no additional gastrointestinal complaints, Denies abdominal pain, Denies melena, Denies hematochezia, Denies change in bowel habits and Denies change in stool character Genitourinary: Genitourinary: Reports no additional male genitourinary complaints, Denies hematuria, Denies oliguria, Denies difficulty urinating, Denies dysuria, Denies urinary frequency, Denies urinary hesitancy, Denies urinary incontinence and Denies urinary urgency Musculoskeletal: Musculoskeletal: Reports no additional musculoskeletal complaints, Denies numbness and Denies tingling Comments: left index finger injury Neurologic: Denies dizziness, Denies loss of vision, Denies numbness and Denies tingling Psychiatric: Psychiatric: Reports no additional psychiatric complaints Endocrine: Endocrine: Reports no additional endocrine complaints Hematologic/Lymphatic: Hematologic/Lymphatic: Reports no additional hematologic/lymphatic complaints Allergic/Immunologic: Allergic/Immunologic: Reports no additional allergic/immunologic complaints PMFSH Past Medical History Attestation statement: The following information was validated with the patient. Source: old records reviewed and nursing notes reviewed Surgical History Hx of elbow surgery Social History Social History Alcohol intake: never Advance Directives: No Advance Directives Information Provided: No Do you have a plan to hurt others: No Plan Physical Exam ED Vital Signs: Vital Signs - 24 hr 02/24/24 16:34 Temperature 97.9 F Pulse Rate 92 Respiratory Rate 18 Blood Pressure 158/104 H Pulse Oximetry 96 Oxygen Delivery Method Room Air BMI result Body Mass Index 30.7 Const General: cooperative, no acute distress, alert and awake Nutritional Appearance: well nourished Orientation/consciousness: patient oriented x3 Limitations: no limitations HENMT Head: Yes normal to inspection and Yes atraumatic Ears: hearing grossly normal bilaterally and external ears normal General nose exam: Normal external nose present, no nasal discharge noted and no epistaxis Face and sinus: Yes normal facial exam, No abrasion and No laceration Mouth: Normal oral and palatal mucosa present, no drooling and no muffled voice Eyes General: appearance normal, both eyes and all related structures Periorbital: periorbital findings normal Eyelids: Yes eyelids normal Conjunctivae: conjunctivae normal Pupils: Equal, round and reactive pupils present EOM: EOMs intact bilaterally Neck Neck: Yes normal visual inspection, Yes full ROM and Yes no lymphadenopathy Chest Chest palpation & inspection: normal inspection of the chest Resp Effort & Inspection: normal respiratory effort and able to speak in complete sentences GI Inspection: Yes normal to inspection Neuro General: patient oriented x3 and moves all extremities Cranial nerves: Yes Equal, round and reactive pupils present Cognition (Neuro): normal cognition Extrem Other: left index finger is securely bandaged General: Yes full ROM and Yes capillary refill normal Psych Appearance: grossly normal Mental Status: mental status grossly normal Affect: normal affect Attitude: cooperative Thought process: Normal thought process present Thought content: Normal thought content present Insight: Good insight present (Psych) Course Course Course Narrative: RME performed by Radhika Pearson PA-C. Patient is a 48 year old assigned male at presenting to the emergency department with left index finger pain. Patient states he was using a wood splitter when the wood slipped because it was wet and the splitter caught his left index finger. Detailed physical exam and review of systems are deferred to the actionscript developer. Imaging ordered. Patient placed back in the waiting room pending room availability and results. Medications Administered Discontinued Medications Generic Name Dose Route Start Last Admin Trade Name Evette PRN Reason Stop Dose Admin Acetaminophen 975 mg 02/24/24 16:38 02/24/24 16:40 Acetaminophen 325 Mg Tablet PO 02/24/24 16:39 975 mg ONCE ONE Administration Medical Decision Making Medical Decision Making [facility] Narrative: Patient is a 48 year old assigned male at with no reported medical history presenting to the emergency department today with left index finger pain. Patient's limited physical exam performed in triage showed a bandaged left index finger that was not bleeding through said bandage. Patient's left hand x-ray showed no acute process. Patient left the department without completing treatment. Patient left the department before myself or any of the other emergency department clinicians could explain to or review with the patient; physical exam findings, test results, need or lack there of for additional testing, need or lack there of for a procedure to be performed, need or lack there of for hospital admission / transfer, need or lack there of for prescription medication, treatment options, or a treatment plan. Differential Diagnosis Differential Diagnoses: The differential diagnosis associated with the presentation includes Laceration Abrasion Admission/Observation Consideration of admission/observation: Escalation of care including admission/observation considered Patient would have been admitted to the hospital had he completed his work up and it had any findings where hospital admission was appropriate, his clinical presentation warranted hospital admission, had myself or any other emergency counseling department chair had the ability to discuss need or lack there of for hospital admission, and the patient hadn't left the department without completing treatment. Independent Interpretation I performed an independent interpretation of an: Plain X-Ray Interpretation: My interpretation is in agreement with the radiologist's impression of this imaging study. EXAMINATION: XR HAND, LEFT CLINICAL INFORMATION: Trauma to second digit. COMPARISON: None available. TECHNIQUE: PA, lateral, and oblique views of the left hand. FINDINGS: There is no fracture or dislocation. There is a skin laceration at the level of the distal phalanx of the second digit. No radiopaque foreign object is identified. XR/XR hand LT min 3V IMPRESSION: No fracture or dislocation. Skin laceration. Electronically signed by: Lee Silva DO 02/24/2024 06:04 PM EDT RP Dictated By: Lee Silva Jr, DO Signed By: Electronically signed by Lee Silva Jr, DO 02/24/24 [id number] Radiology Impression Discussion of test interpretation with radiology: I have reviewed the radiologist's reading. Discharge Plan Discharge Clinical Impression: Laceration Patient Disposition: Left W/O Completing Treatment Prescriptions: No Action doxycycline hyclate 100 mg tablet 100 mg PO BID 10 Days Qty: 20 0RF cephalexin 500 mg capsule 500 mg PO BID 10 Days Qty: 20 0RF naproxen 500 mg tablet 500 mg PO BID PRN (Reason: pain) Qty: 10 0RF sulfamethoxazole-trimethoprim [Bactrim DS] 800-160 mg tablet 1 tab PO BID Qty: 14 0RF erythromycin 5 mg/gram (0.5 %) ointment 0.5 inch ophthalmic (eye) TID 7 Days Qty: 3.5 0RF Discharge Date/Time: 02/24/24 20:44
[2024-02-24] MEDS: Acetaminophen 325 MG TABLET 975 MG PO (16:40)
--- NOTE | 2024-02-24 20:43 | PC.NURSE ---
No response in the WR @ 2039, called pts cell but did not answer.
== END 2024-02-24 20:44 | disposition left against medical advice (07) ==
PROVIDERS: Emergency Provider Emergency Medicine
DX: S61.211A Laceration without foreign body of left index finger without damage to nail, initial encounter (principal); W31.89XA Contact with other specified machinery, initial encounter; Y93.9 Activity, unspecified; Y92.9 Unspecified place or not applicable; Y99.9 Unspecified external cause status
CPT/HCPCS: 73130; 99282; 99283

== ENCOUNTER 2024-02-25 07:12 | Emergency (ER) | payer MEDICAID, SELFPAY ==
[2024-02-25 07:16] VITALS: BP 121/87; PULSE 95; RESP 18; TEMP 36.6; O2SAT 96; BMI 29.0
--- NOTE | 2024-02-25 07:54 | PC.NURSE ---
Pt comes from home for accidentally cutting his left finger open on a wood splitter. CMS intact, pt unable to bend finger at injury. Pt states last tetanus shot 2 years ago. A/ox4, respirations even and unlabored, no increased wob/sob, s1 and s2 heard, HR- 60s, abdomen soft, non-tender. Pt denies cp/sob/dizziness/headache. States no pain to finger unless moved. Pt arrived with finger wrapped in multiple bandaids. This RN removed bandaids, cleaned the laceration, and redressed it. EITAN Francois at bedside, call john within reach, all needs met at this time.
--- NOTE | 2024-02-25 08:05 | ED_ITS ---
HPI - Wound/Laceration General Chief Complaint: Wound/Laceration Stated Complaint: finger lac Time Seen by Provider: 02/25/24 07:40 Source: patient Mode of arrival: ambulatory Limitations: no limitations History of Present Illness ED Provider: DEVANTE GARCÍA PA-C HPI narrative: 48 year old right hand dominant male with no significant pmhx presents to the ED today for evaluation of finger laceration sustained yesterday. Patient state that while using a wood splitter, a piece of wood flew back at him and cut his left 2nd digit. Denies any retained wood in the finger. Not on anticoagulation. Tetanus updated 2 years ago. Patient presented to the ED yesterday, had xrays performed, and left without completing treatment due to long wait times. Related Data Previous Rx's ?Medication ?Instructions ?Recorded cephalexin 500 mg capsule 500 mg PO BID Cellulitis 10 days 12/01/20 #20 caps doxycycline hyclate 100 mg tablet 100 mg PO BID 10 days #20 tabs 12/01/20 naproxen 500 mg tablet 500 mg PO BID PRN pain #10 tabs 12/01/20 sulfamethoxazole 800 1 tab PO BID #14 tabs 01/12/22 mg-trimethoprim 160 mg tablet (Bactrim DS) erythromycin 5 mg/gram (0.5 %) eye 0.5 inch ophthalmic (eye) TID 7 01/16/23 ointment days #3.5 grams Allergies Allergy/AdvReac Type Severity Reaction Status Date / Time Penicillins [PENICILLINS] Allergy Intermediate ANAPHYLAXIS Verified 02/25/24 07:17 Review of Systems Review of Systems: Constitutional: No fever, chills, fatigue, night sweats, weight changes ENT/Mouth: No ear pain, hearing loss, nasal congestion, sinus pain, rhinorrhea, sore throat Eyes: No eye pain, swelling, redness, vision changes, discharge Cardio: No chest pain, palpitations, AC, orthopnea, peripheral edema Pulm: No SOB, cough, sputum, wheezing, dyspnea, hemoptysis GI: No nausea, vomiting, hematemesis, abdominal pain, diarrhea, constipation, hematochezia, melena : No irregular bleeding, dysuria, frequency, urgency, hesitancy, hematuria, flank pain, urinary flow changes, urinary incontinence or retention MSK: No back pain, neck pain, joint pain, myalgias Skin: No lesions, rashes, +left 2nd digit laceration Neuro: No weakness, numbness, paresthesias, LOC, dizziness, headache Psych: No anxiety/panic, depression, SI/HI, AH/VH All other systems reviewed and are negative. [facility] Past Medical History Attestation statement: The following information was validated with the patient. Source: old records reviewed and nursing notes reviewed Surgical History Hx of elbow surgery Social History Social History Alcohol intake: never Advance Directives: No Advance Directives Information Provided: No Do you have a plan to hurt others: No Plan Physical Exam Vital Signs: Vital Signs: Last Vital Signs Temp 97.9 F 02/25/24 08:53 Pulse 92 02/25/24 08:53 Resp 18 02/25/24 08:53 BP 120/82 02/25/24 08:53 Pulse Ox 98 02/25/24 08:53 O2 Del Method Room Air 02/25/24 08:53 BMI result Body Mass Index 29.0 vital signs stable, afebrile General: Well appearing, in no acute distress. Skin: Warm, dry, + 2cm linear horizontal laceration noted to finger pad of left 2nd digit, bleeding controlled. no noted fb. Head: Normocephalic, atraumatic. EENT: Hearing is intact b/l. Conjunctiva clear. Sclera is anicteric. PERRLA. EOM intact. Moist mucous membranes.? Neck: Supple without LAD. FROM. Cardiac: Chest wall symmetric. RRR. Lungs: Normal respiratory effort without accessory muscle use? Ext: + FROM intact to MCP/PIP/DIP of left second digit. nv intact. Neuro: AOx3. Normal speech. Ambulating with steady gait. Psych: Appropriate mood and affect. Responds appropriately to questions. Medications Administered Discontinued Medications Generic Name Dose Route Start Last Admin Trade Name Freq PRN Reason Stop Dose Admin Acetaminophen 975 mg 02/25/24 08:47 02/25/24 08:50 Acetaminophen 325 Mg Tablet PO 02/25/24 08:48 975 mg ONCE ONE Administration Lidocaine HCl 5 ml 02/25/24 07:55 02/25/24 08:11 Lidocaine Hcl 1 % Mpf 5 Ml Vial INFILTRATI 02/25/24 07:56 5 ml ONCE ONE Administration Lidocaine HCl 5 ml 02/25/24 07:55 02/25/24 08:11 Lidocaine Hcl 1 % Mpf 5 Ml Vial INFILTRATI 02/25/24 07:56 5 ml ONCE ONE Administration Medical Decision Making Medical Decision Making [facility] Narrative: 48 year old right hand dominant male with no significant pmhx presents to the ED today for evaluation of finger laceration sustained yesterday. Vital signs stable, afebrile. On exam, 2cm linear horizontal laceration noted to finger pad of left 2nd digit, bleeding controlled. no noted fb. Neurovascularly intact distally. Full ROM intact to MCP, PIP, DIP of left 2nd digit. Differential diagnosis includes laceration, abrasion, fracture, retained fb Plan for imaging review, laceration repair, and disposition Differential Diagnosis Differential Diagnoses: The differential diagnosis associated with the presentation includes As above Admission/Observation Not indicated Independent Interpretation I performed an independent interpretation of an: Plain X-Ray Interpretation: X-ray left hand without acute fracture, agree with radiologist's interpretation. Radiology Impression Discussion of test interpretation with radiology: I have reviewed the radiologist's reading. Radiologist Impression: EXAMINATION: XR HAND, LEFT CLINICAL INFORMATION: Trauma to second digit. COMPARISON: None available. TECHNIQUE: PA, lateral, and oblique views of the left hand. FINDINGS: There is no fracture or dislocation. There is a skin laceration at the level of the distal phalanx of the second digit. No radiopaque foreign object is identified. XR/XR hand LT min 3V IMPRESSION: No fracture or dislocation. Skin laceration. Electronically signed by: Lee Silva DO 02/24/2024 06:04 PM EDT External Record Review External record reviewed: Inpatient record Prescription Management I considered prescription management with: Pain Medication Social Determinants Patient?s care significantly limited by Social Determinants of Health including: Other Social Determinant of Health Procedures Laceration Laceration 1: Site: hand (finger) Side (If applicable): left Size (cm): 2 Description: linear Depth: simple, single layer Local Anesthetic: lidocaine 1% Amount of anesthesia used (mL): 10 Pre-repair: wound explored, irrigated extensively and deep structures intact Skin layer closed with: nylon Size (cm): 4-0 Number of sutures: 6 Technique: simple, interrupted Critical Care Time Critical Care Time Critical Care Time: No Discharge Plan Discharge Clinical Impression: Laceration Patient Disposition: Home, Self-Care Instructions: Care For Your Stitches (ED), Laceration (ED) Additional Instructions: You have been evaluated in the Emergency Department today for a laceration to your left pointer finger. Your laceration was repaired in the ED with sutures.? Please keep the area surrounding the laceration clean and dry. Please keep the area out of the sunlight for the next 6 months to help prevent scarring.? If you develop redness or swelling at the site of your laceration please come back to the ER for a wound check. I recommend you take 600mg ibuprofen every 6 hours or tylenol 650mg every 6 hours as needed for pain. If needed, you can alternate these medications so that you take one medication every 3 hours. For example, at noon take ibuprofen, then at 3pm take tylenol, then at 6pm take ibuprofen. Please follow up with your primary care physician in 7-10 days for suture removal. You can also return to the ER or another urgent care facility for this service. Return to the Emergency Department if you experience discharge from your laceration, redness around your laceration, warmth around your laceration, fever, vomiting, numbness, tingling, or any other concerning symptoms. In the case of an emergency call 911. Prescriptions: No Action doxycycline hyclate 100 mg tablet 100 mg PO BID 10 Days Qty: 20 0RF cephalexin 500 mg capsule 500 mg PO BID 10 Days Qty: 20 0RF naproxen 500 mg tablet 500 mg PO BID PRN (Reason: pain) Qty: 10 0RF sulfamethoxazole-trimethoprim [Bactrim DS] 800-160 mg tablet 1 tab PO BID Qty: 14 0RF erythromycin 5 mg/gram (0.5 %) ointment 0.5 inch ophthalmic (eye) TID 7 Days Qty: 3.5 0RF Referrals: [facility] [Primary Care Provider] - Interventions: ED Discharge Assessment Last Done: 02/25/24 08:53 Discharge Date/Time: 02/25/24 08:54 Print Language: Welsh
[2024-02-25] MEDS: Lidocaine HCl 1 % MPF 5 ML VIAL INFILTRATI ×2 (08:11)
[2024-02-25] MEDS: Acetaminophen 325 MG TABLET 975 MG PO (08:50)
[2024-02-25 08:53] VITALS: BP 120/82; PULSE 92; RESP 18; TEMP 36.6; O2SAT 98
== END 2024-02-25 08:54 | disposition home or self-care (01) ==
PROVIDERS: Emergency Provider Emergency Medicine Emergency Medical Services
DX: S61.211A Laceration without foreign body of left index finger without damage to nail, initial encounter (principal); W45.8XXA Other foreign body or object entering through skin, initial encounter; Y93.89 Activity, other specified; Y92.9 Unspecified place or not applicable; Y99.9 Unspecified external cause status
CPT/HCPCS: 12001; 99284

== ENCOUNTER 2024-03-09 09:14 | Emergency (ER) | payer MEDICAID, SELFPAY ==
[2024-03-09 09:29] VITALS: BP 128/91; PULSE 82; RESP 16; TEMP 37; O2SAT 96; BMI 29.0
--- NOTE | 2024-03-09 09:38 | ED_ITS ---
HPI - General Adult General Chief complaint: Wound/Laceration Stated complaint: Suture removal Time Seen by Provider: 03/09/24 09:38 Source: patient Mode of arrival: ambulatory Limitations: no limitations History of Present Illness ED Provider: Radhika Pearson PA-C HPI narrative: Patient is a 48 year old assigned male at with no reported medical history presenting to the emergency department today for suture removal. Patient states that on 02/25/2024 he was evaluated and had 6 sutures placed in his left 2nd digit. Patient states that he is here to have them removed. Patient denies any drainage from the area, dizziness, lightheadedness, abdominal pain, nausea, vomiting, fever, chills, blurry vision, double vision, loss of vision, chest pain, difficulty breathing, shortness of breath, back pain, night sweats, pain with urination, increased urinary frequency, increased urinary urgency, blood in his urine or stool, syncope or a near syncopal episode, bowel incontinence, bladder incontinence, or any other complaints at this time. Onset (ago): day(s) () Location: right (2nd digit) Relieving factors: none Exacerbating factors: none Associated symptoms: denies other symptoms Related Data Previous Rx's ?Medication ?Instructions ?Recorded cephalexin 500 mg capsule 500 mg PO BID Cellulitis 10 days 12/01/20 #20 caps doxycycline hyclate 100 mg tablet 100 mg PO BID 10 days #20 tabs 12/01/20 naproxen 500 mg tablet 500 mg PO BID PRN pain #10 tabs 12/01/20 sulfamethoxazole 800 1 tab PO BID #14 tabs 01/12/22 mg-trimethoprim 160 mg tablet (Bactrim DS) erythromycin 5 mg/gram (0.5 %) eye 0.5 inch ophthalmic (eye) TID 7 01/16/23 ointment days #3.5 grams Allergies Allergy/AdvReac Type Severity Reaction Status Date / Time Penicillins [PENICILLINS] Allergy Intermediate ANAPHYLAXIS Verified 03/09/24 09:32 Review of Systems Constitutional: Constitutional: Reports no additional constitutional complaints, Denies chills, Denies fever(s) and Denies night sweats Eyes: Eyes: Reports no additional eye complaints, Denies blurry vision, Denies change in vision, Denies diplopia, Denies eye discharge, Denies loss of vision and Denies eye pain ENT: Denies dizziness Cardiovascular: Cardiovascular: Reports no additional cardiovascular complaints, Denies chest pain, Denies lightheadedness, Denies Loss of Consci ousness and Denies dyspnea Respiratory: Respiratory: Reports no additional respiratory complaints and Denies dyspnea Gastrointestinal: Gastrointestinal: Reports no additional gastrointestinal complaints, Denies abdominal pain, Denies melena, Denies hematochezia, Denies change in bowel habits and Denies change in stool character Genitourinary: Genitourinary: Reports no additional male genitourinary complaints, Denies hematuria, Denies oliguria, Denies difficulty urinating, Denies dysuria, Denies urinary frequency, Denies urinary hesitancy, Denies urinary incontinence and Denies urinary urgency Musculoskeletal: Musculoskeletal: Reports no additional musculoskeletal complaints, Denies numbness and Denies tingling Comments: well approximated and healing wound to the distal palmar right 2nd digit with [address] Neurologic: Denies dizziness, Denies loss of vision, Denies numbness and Denies tingling Psychiatric: Psychiatric: Reports no additional psychiatric complaints Endocrine: Endocrine: Reports no additional endocrine complaints Hematologic/Lymphatic: Hematologic/Lymphatic: Reports no additional hematologic/lymphatic complaints Allergic/Immunologic: Allergic/Immunologic: Reports no additional allergic/immunologic complaints PMFSH Past Medical History Attestation statement: The following information was validated with the patient. Source: old records reviewed and nursing notes reviewed Surgical History Hx of elbow surgery Social History Social History Alcohol intake: never Advance Directives: No Advance Directives Information Provided: Yes Physical Exam ED Vital Signs: Vital Signs - 24 hr 03/09/24 09:29 03/09/24 10:05 Temperature 98.6 F 98.6 F Pulse Rate 82 82 Respiratory Rate 16 16 Blood Pressure 128/91 H 128/91 H Pulse Oximetry 96 96 Oxygen Delivery Method Room Air Room Air BMI result Body Mass Index 29.0 Const General: cooperative, no acute distress, alert and awake Nutritional Appearance: well nourished Orientation/consciousness: patient oriented x3 Limitations: no limitations HENMT Head: Yes normal to inspection and Yes atraumatic Ears: hearing grossly normal bilaterally and external ears normal General nose exam: Normal external nose present, no nasal discharge noted and no epistaxis Face and sinus: Yes normal facial exam, No abrasion and No laceration Mouth: Normal oral and palatal mucosa present, no drooling and no muffled voice Eyes General: appearance normal, both eyes and all related structures Periorbital: periorbital findings normal Eyelids: Yes eyelids normal Conjunctivae: conjunctivae normal Pupils: Equal, round and reactive pupils present EOM: EOMs intact bilaterally Neck Neck: Yes normal visual inspection, Yes full ROM and Yes no lymphadenopathy Chest Chest palpation & inspection: normal inspection of the chest Resp Effort & Inspection: normal respiratory effort and able to speak in complete sentences GI Inspection: Yes normal to inspection Neuro General: patient oriented x3 and moves all extremities Cranial nerves: Yes Equal, round and reactive pupils present Cognition (Neuro): normal cognition Extrem Other: well approximated and healing wound to the distal palmar right 2nd digit with [address] General: Yes full ROM and Yes capillary refill normal Psych Appearance: grossly normal Mental Status: mental status grossly normal Affect: normal affect Attitude: cooperative Thought process: Normal thought process present Thought content: Normal thought content present Insight: Good insight present (Psych) Procedures Procedure Narrative Procedure Narrative: 6 nylon sutures removed from the distal palmar right 2nd digit Wound remained well approximated Medical Decision Making Medical Decision Making MDM Narrative: Patient is a 48 year old assigned male at with no reported medical history presenting to the emergency department today for suture removal. Patient's physical exam was as noted in the physical exam portion of this note. I explained my physical exam findings to the patient. I answered all questions asked by the patient. Sutures were removed, per procedure note, without incident. I stressed the importance of the patient taking his medication as directed (either prescribed or as the over the counter packaging recommends). I stressed the importance of the patient following up with his primary care provider. I stressed the importance of the patient returning to the emergency department immediately if his symptoms were to worsen or if he were to develop any dizziness, shortness of breath, difficulty breathing, chest pain, blurry vision, loss of vision, nausea, vomiting, abdominal pain, fever, chills, back pain, or any other complaints. Patient verbalized agreement and understanding with this treatment plan and discharge. Differential Diagnosis Differential Diagnoses: The differential diagnosis associated with the presentation includes Suture removal Admission/Observation Consideration of admission/observation: Escalation of care including admission/observation considered Patient would have been admitted to the hospital had his clinical presentation warranted hospital admission. Discharge Plan Discharge Clinical Impression: Encounter for removal of sutures Patient Disposition: Home, Self-Care Instructions: Stitches Removal (ED) Additional Instructions: Follow up with your primary care provider. Return to the emergency department immediately if your symptoms worsen or if you develop any dizziness, shortness of breath, difficulty breathing, chest pain, blurry vision, loss of vision, nausea, vomiting, abdominal pain, fever, chills, back pain, or any other complaints. Prescriptions: No Action doxycycline hyclate 100 mg tablet 100 mg PO BID 10 Days Qty: 20 0RF cephalexin 500 mg capsule 500 mg PO BID 10 Days Qty: 20 0RF naproxen 500 mg tablet 500 mg PO BID PRN (Reason: pain) Qty: 10 0RF sulfamethoxazole-trimethoprim [Bactrim DS] 800-160 mg tablet 1 tab PO BID Qty: 14 0RF erythromycin 5 mg/gram (0.5 %) ointment 0.5 inch ophthalmic (eye) TID 7 Days Qty: 3.5 0RF Referrals: [facility] [Primary Care Provider] - Interventions: ED Discharge Assessment Last Done: 03/09/24 10:05 Discharge Date/Time: 03/09/24 10:06 Print Language: Serbian
[2024-03-09 10:05] VITALS: BP 128/91; PULSE 82; RESP 16; TEMP 37; O2SAT 96
--- NOTE | 2024-03-09 10:05 | PC.NURSE ---
FINGER SUTURES WERE REMOVED , NO DRAINING OR BLEEDING NOTED. DSD PLACED
== END 2024-03-09 10:06 | disposition home or self-care (01) ==
PROVIDERS: Emergency Provider Emergency Medicine
DX: Z48.02 Encounter for removal of sutures (principal)
CPT/HCPCS: 99282

== ENCOUNTER 2024-07-02 13:33 | Outpatient (REF) | payer MEDICAID, SELFPAY ==
[2024-07-02 17:51] LABS: Estimated Average Glucose 114 mg/dL; Hemoglobin A1C 154.1935 umol/L; Hemoglobin A1c % 5.6 % (<6.0); Total Hemoglobin (HGBA1C) 4033.8922 umol/L
[2024-07-02 18:34] LABS: Prostate Specific Antigen 0.54 ng/mL (<0.05-4.0)
[2024-07-02 19:39] LABS: Alanine Aminotransferase 96 U/L (0-40); Albumin Level 4.3 g/dL (3.5-5.0); Anion Gap 13 (12-20); Aspartate Amino Transferase 63 U/L (5-37); Bilirubin Total 0.4 mg/dL (0.0-1.0); Blood Urea Nitrogen 10 mg/dL (9-16); Calcium 9.6 mg/dL (8.4-10.2); Carbon Dioxide 23 mmol/L (22-29); Chloride 109 mmol/L (96-108); Cholesterol 220 mg/dL (<200); Estimated Glomerular Filt Rate > 60; Glucose Random 89 mg/dL (60-115); HDL Cholesterol 34 mg/dL (>40); LDL Cholesterol Calculated 114 mg/dL (<100); Potassium 4.1 mmol/L (3.3-5.1); Sodium 141 mmol/L (135-145); Total Protein 7.5 g/dL (6.5-8.0); Triglycerides 360 mg/dL (<150)
[2024-07-02 20:20] LABS: Alkaline Phosphatase 95 U/L (39-117)
== END 2024-07-02 13:34 | disposition home or self-care (01) ==
LOC: HO.HHCL 13:33
PROVIDERS: Visit Provider Nurse Practitioner Primary Care
DX: Z12.5 Encounter for screening for malignant neoplasm of prostate (principal); I10 Essential (primary) hypertension; R42 Dizziness and giddiness; E78.2 Mixed hyperlipidemia
CPT/HCPCS: 36415; 80053; 80061; 83036; 84153

== ENCOUNTER 2024-11-20 09:17 | Day surgery (SDC) | payer MEDICAID, SELFPAY ==
[2024-11-16 14:38] VITALS: BMI 32.4
--- OUTSIDE RECORDS SUMMARY | 2024-11-19 16:05 | XMS_ITS ---
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 Name Role Phone Michelle Delgado Primary Care Provider Alexa Devlin Jr, Toni Braun [phone] REASON FOR VISIT bowel prep Medications Medication SIG (Take, Route, Fr equency, Duration) Notes Start Date End Date Status Dulcolax 5 MG 4 tablets for bowel prep Orally Once a day 10/25/2024 Active MiraLax 17 GM/SCOOP take for bowel prep Orally Once a day 10/25/2024 Active Encounters Encounter Location Date Provider Diagnosis [facility] [address] [place] [id number] 10/25/2024 Toni Devlin Jr Plan Of Treatment Medication Medication Name Sig Start Date Stop Date Notes Dulcolax 5 MG 4 tablets for bowel prep Orally Once a day 10/25/2024 MiraLax 17 GM/SCOOP take for bowel prep Orally Once a day 10/25/2024 Next Appt Details Provider Name:Toni hastings Jr, 11/20/2024 11:00:00 AM, [address] [place] [address] , [place], [place], [id number], Progress Notes * OBED MOTTDOB: 1975 (48 yo M)Acc No.[id number]:10/25/2024 Patient:?OLIVASurinder LIEBERMANElisa ISIDRO ALMEIDAER :1975???Age:48 Y???Sex:Male Address:[address] [place] [address], [place] [address] * Refills? Start MiraLax Powder, 17 GM/SCOOP, Orally, 8.3 Unspecified, take for bowel prep, Once a day, Refills=0 Start Dulcolax Tablet Delayed Release, 5 MG, Orally, 4 Tablet, 4 tablets for bowel prep, Once a day, Refills=0 * true * Date:? Generated for Sonya villarreal/Karen/eTbethanysmitting on:?11/19/2024 04:05 PM EDT
[2024-11-20 09:21] VITALS: BP 124/92; PULSE 90; RESP 18; TEMP 36.1; O2SAT 98; BMI 32.8
[2024-11-20] MEDS: Lactated Ringers 1,000 ML 50 ML IVCONT (09:43)
--- NOTE | 2024-11-20 09:50 | P.CONAN_ITS ---
HPI - Anesthesia Eval Consult details Narrative: 49 yo M presenting for colonoscopy. Smoker and marijuana use. [facility] Past Medical History Medical History (Updated 11/16/24 @ 14:34 by Lisbet Florian RN) History of headache Onychomycosis Hyperlipidemia HTN (hypertension) Family History Family history of problems with anesthesia: No Surgical History Surgical History Hx of elbow surgery History of Problems with Anesthesia: No Social History Social History Alcohol intake: never Patient Tobacco Use Status: Current everyday Tobacco user Substance Use Frequency: Chronic Longstanding Have you been hit, kicked, punched, or otherwise hurt by someone within the past year? If so, by whom?: No Are you DNR?: No Advance Directives: No Advance Directives Information Provided: Yes Meds Allergies Allergy/AdvReac Type Severity Reaction Status Date / Time Penicillins [PENICILLINS] Allergy Intermediate ANAPHYLAXIS Verified 03/09/24 09:32 Active Medications: Current Medications Lactated Ringer's (Lr) 1,000 mls @ 50 mls/hr IVCONT .Q20H DMITRI Last Admin: 11/20/24 09:43 Dose: 50 mls/hr Home Medications ?Medication ?Instructions ?Recorded ?Confirmed ?Last Taken ?Type ibuprofen 200 mg tablet 200 mg PO TID PRN Pain 11/16/24 11/16/24 11/19/24 History losartan 25 mg tablet 25 mg PO DAILY 11/16/24 11/16/24 Unknown History terbinafine HCl 250 mg tablet 250 mg PO DAILY 11/16/24 11/16/24 Unknown History Exam Exam Date and Time: 11/20/24 0950 Height,Weight and Vital Signs: Height 5 ft 6 in Weight 92.1 kg Last Vital Signs Temp 96.9 F 11/20/24 09:21 Pulse 90 11/20/24 09:21 Resp 18 11/20/24 09:21 BP 124/92 H 11/20/24 09:21 Pulse Ox 98 11/20/24 09:21 O2 Del Method Room Air 11/20/24 09:21 Airway Mallampati Class: II TM Dist: >3cm Neck ROM: Full Loose/Missing/Broken Teeth: Yes (loose molar right upper jaw) Heart: S1S2 Lungs: CTAB Assessment and Plan Assessment Anesthesia Assessment: Anesthesia Plan Discussed and Chart Reviewed Final Anesthetic Review Family History of Problems with Anesthesia: No History of Problems with Anesthesia: No NPO: Yes ASA Class: II Final Preanesthetic Review: No Changes in Pt Med Stat, Meds/Allgs Chart Reviewed, Consent Obtained/Reviewed and Anes Risks/Benef Reviewed Patient Risk: Low Procedure Risk: Low Anesthetic Plan Anesthetic Plan: MAC: and Agree w/ Assess. and Plan Disposition: Standard PACU
--- NOTE | 2024-11-20 10:26 | MHC.SHP ---
Pre-Procedural Eval Section A - 24 Hr Update-Section A only Date of Service: 11/20/24 Section B - Complete if H&P > 30 days Chief Complaint: screening Details of Present Illness: see H&P no changes Relevant Family History (Specify if Yes): No Relevant Social History: None Present Medications: see Short Stay Collaborative assessment Medical History: No relevant PMH History of Previous Operations: No relevant previous surgery Allergies: Allergies Allergy/AdvReac Type Severity Reaction Status Date / Time Penicillins [PENICILLINS] Allergy Intermediate ANAPHYLAXIS Verified 03/09/24 09:32 Review of Systems Sugical H&P ROS: Negative: Constitution, Cardiovascular, Respiratory, Neurological, Psychiatric, Hem-Onc, Allergic/Immunologic, Gastrointestinal, Genitourinary, Musculoskeletal, Integumentary, Endocrine and Eyes/Ears/Nose/Throat Exam Surgical H&P Exam: Normal: HEENT, Normal: Heart, Normal: Lungs, Normal: Extremities, Normal: Abdomen, Normal: Skin and Normal: Neurological Plan Diagnosis/Plan: Unchanged I have reviewed the history and physical and performed a pertinent physical examination on my patient. No changes have occurred unless specified. Time Spent With Patient Time: Total time managing care of this patient today ____ minutes.
[2024-11-20 10:52] VITALS: BP 87/54; PULSE 89; RESP 16; TEMP 36.3; O2SAT 97
[2024-11-20 11:05] VITALS: BP 120/89; PULSE 92; RESP 16; TEMP 36.3; O2SAT 97
--- NOTE | 2024-11-20 12:28 | OP_ITS ---
DATE OF SERVICE: 11/20/2024 SURGEON: Toni Devlin MD PREOPERATIVE DIAGNOSIS: POSTOPERATIVE DIAGNOSIS: PROCEDURE PERFORMED: ESTIMATED BLOOD LOSS: COMPLICATIONS: ANESTHESIA: Monitored anesthesia care. ASSISTANTS: SPECIMENS: PROCEDURE: Colonoscopy to the terminal ileum. INDICATION: Colon cancer screening. DESCRIPTION OF PROCEDURE: History and physical was performed. The risks and benefits of the procedure were explained to the patient. Informed consent was obtained. The patient was placed in the left lateral decubitus position. A digital rectal exam was performed and was found to be normal. The Olympus pediatric video colonoscope was introduced into the rectum and advanced to the cecum. The cecum was identified by transillumination, palpation, and identification of ileocecal valve. Examination was performed and the scope was removed. He tolerated the procedure well and was returned to the recovery area in stable condition. FINDINGS: The terminal ileum was normal. Visualized colonic mucosa was normal. The quality of the prep was good. No polyps were identified. Retroflexed examination was normal. There was mild sigmoid diverticulosis. IMPRESSION: Normal colonoscopy. RECOMMENDATIONS: 1. Follow up as needed. 2. Repeat colonoscopy is recommended in 10 years for average-risk individuals. MD ANJELICA Gillis/JESSENIA / [id number]
== END 2024-11-20 11:40 | disposition home or self-care (01) ==
PROVIDERS: Visit Provider Internal Medicine Gastroenterology
PROC: 0DJD8ZZ Inspection of Lower Intestinal Tract, Via Natural or Artificial Opening Endoscopic (ICD-10-PCS; CPT 45378; principal; 2024-11-20 11:00)
DX: Z12.11 Encounter for screening for malignant neoplasm of colon (principal); K57.30 Diverticulosis of large intestine without perforation or abscess without bleeding; I10 Essential (primary) hypertension; E78.5 Hyperlipidemia, unspecified; B35.1 Tinea unguium; R51.9 Headache, unspecified; Z79.1 Long term (current) use of non-steroidal anti-inflammatories (NSAID); Z79.899 Other long term (current) drug therapy; Z88.0 Allergy status to penicillin; F17.210 Nicotine dependence, cigarettes, uncomplicated
CPT/HCPCS: 45378; J2704; J3010